=== PATIENT | male | born 1960 | race Caucasian/White ===

== ENCOUNTER 2016-10-17 17:31 | Emergency (ER) | payer MEDICAID ==
[~2016-10-17] VITALS: Ht 182.9 cm; Wt 104.0 kg
[~2016-10-17 17:31] MED LIST: AUGMENTIN875TAB PO; COLCHICINE0.6 M2 PO; FLONASE NASAL50 MCG; INDOCIN50 MG/CAP PO; ULTRAM50 M1 PO
[2016-10-17] MEDS ORDERED: MUPIROCIN2 % EX (18:29)
[2016-10-17] MEDS ORDERED: DOXYCYC MONO100 M1 PO (18:29)
[2016-10-17 18:36] VITALS: BP 142/94
== END 2016-10-17 18:39 | disposition home or self-care (01) | DRG 607 ==
LOC: ED 17:31
DX: L73.9 Follicular disorder, unspecified (principal)

== ENCOUNTER 2017-11-25 10:20 | Observation (INO) | payer OTHER ==
[~2017-11-25] VITALS: Ht 182.9 cm; Wt 102.0 kg
[~2017-11-25 10:20] MED LIST changes: +DOXYCYC MONO100 M1 PO; +MUPIROCIN2 % EX
[2017-11-25 11:08] LABS: HEMATOCRIT 36.8 % (39.0-50.0); HEMOGLOBIN 12.6 g/dl (14.0-18.0); IMMATURE GRANULOCYTES 0.2 % (0.0-1.0); MEAN CELL VOLUME 91.1 fL CALC (80.0-100.0); MEAN CORPUSCULAR HGB 31.2 pG CALC (26.0-32.0); MEAN CORPUSCULAR HGB CONC 34.2 g/L CALC (32.0-36.0); NEUT# 7.16 thou/uL (1.82-7.42); RED BLOOD COUNT 4.04 mill/uL (4.70-6.10); RED CELL DISTRI WIDTH 13.3 % (11.5-15.5)
[2017-11-25] MEDS ORDERED: LISINOPRIL10 MG PO (11:18)
[2017-11-25] MEDS ORDERED: METFORMIN500 MG PO (11:19)
[2017-11-25] MEDS ORDERED: ATORVASTATIN CA40 MG PO (11:20)
[2017-11-25 11:25] LABS: ALBUMIN 4.7 g/dL (3.2-5.0); BILIRUBIN, TOTAL 0.9 mg/dL (0.0-1.4); BUN 16 mg/dL (9-20); BUN/CREATININE RATIO 16 (12-20 (CALC)); CARBON DIOXIDE 20 mmol/l (22-30); CHLORIDE 97 mmol/l (95-108); CPK 137 u/l (52-200); GFR > 60 ML/MIN (>=60 (CALC)); GFR FOR AFR.AMER. > 60 ML/MIN (>=60 (CALC)); POTASSIUM 4.3 mmol/l (3.5-5.1); SGOT/AST 21 u/l (17-59); SGPT/ALT 46 u/l (21-72); TOTAL PROTEIN 8.7 g/dL (6.3-8.2)
[2017-11-25 11:36] LABS: ALKALINE PHOSPHATASE 109 u/l (38-126); ANION GAP 20 (6-22 (CALC)); SODIUM 133 mmol/l (137-146)
[2017-11-25 13:23] LABS: URINE BILIRUBIN - DIPSTICK NEGATIVE (NEGATIVE); URINE BLOOD DIPSTICK NEGATIVE (NEGATIVE); URINE COLOR YELLOW; URINE GLUCOSE - DIPSTICK >=1000 mg/dL (NEGATIVE); URINE KETONE NEGATIVE (NEGATIVE); URINE LEUK ESTERASE NEGATIVE (NEGATIVE); URINE NITRITE - DIPSTICK NEGATIVE (Negative); URINE PH 5.5 (4.5-8.0); URINE PROTEIN - DIPSTICK NEGATIVE (NEG-TRACE); URINE SPECIFIC GRAVITY 1.015; URINE UROBILINOGEN - DIPSTICK 0.2 E.U./dL (0.2)
[2017-11-25 13:30] LABS: URINE CLARITY CLEAR
[2017-11-25 13:40] VITALS: BP 98/66
[2017-11-25 14:08] LABS: INFLUENZA A NONE DETECTED (NONE DETECT); INFLUENZA B NONE DETECTED (NONE DETECT)
[2017-11-25 15:24] VITALS: BP 111/63
[2017-11-25 19:00] VITALS: BP 124/64
[2017-11-25 22:30] LABS: C. DIFFICILE TOXIN A&B NEGATIVE (NEGATIVE)
[2017-11-26 00:31] VITALS: BP 128/79
[2017-11-26 04:00] VITALS: BP 133/82
[2017-11-26 06:10] LABS: HEMATOCRIT 32.2 % (39.0-50.0); HEMOGLOBIN 10.9 g/dl (14.0-18.0); MEAN CORPUSCULAR HGB 31.1 pG CALC (26.0-32.0); MEAN CORPUSCULAR HGB CONC 33.9 g/L CALC (32.0-36.0); RED BLOOD COUNT 3.5 mill/uL (4.70-6.10); RED CELL DISTRI WIDTH 13.5 % (11.5-15.5)
[2017-11-26 06:30] LABS: ANION GAP 13 (6-22 (CALC)); BUN 11 mg/dL (9-20); BUN/CREATININE RATIO 12 (12-20 (CALC)); CARBON DIOXIDE 23 mmol/l (22-30); CHLORIDE 100 mmol/l (95-108); CHOLESTEROL HDL RATIO 5.1 (<4.4 (CALC)); CREATININE 0.9 mg/dL (0.7-1.3); GFR > 60 ML/MIN (>=60 (CALC)); GFR FOR AFR.AMER. > 60 ML/MIN (>=60 (CALC)); HDL CHOLESTEROL 41 mg/dL (>=40); MAGNESIUM 1.2 mg/dL (1.6-2.3); POTASSIUM 4.2 mmol/l (3.5-5.1); SODIUM 131 mmol/l (137-146); TOTAL CHOLESTEROL 210 mg/dl (0-199)
[2017-11-26 06:37] LABS: VLDL CHOLESTROL 135 mg/dl (8-62 (CALC))
[2017-11-26 06:46] LABS: TOTAL TRIGLYCERIDES 676 mg/dl (30-149)
[2017-11-26 07:54] VITALS: BP 122/76
[2017-11-26 12:30] VITALS: BP 118/72
[2017-11-26 16:17] VITALS: BP 118/84
[2017-11-26 19:05] VITALS: BP 132/87
[2017-11-27 00:08] VITALS: BP 116/77
[2017-11-27 04:00] VITALS: BP 118/79
[2017-11-27 05:26] LABS: HEMATOCRIT 32.7 % (39.0-50.0); HEMOGLOBIN 10.7 g/dl (14.0-18.0); IMMATURE GRANULOCYTES 0.3 % (0.0-1.0); MEAN CELL VOLUME 93.4 fL CALC (80.0-100.0); MEAN CORPUSCULAR HGB 30.6 pG CALC (26.0-32.0); MEAN CORPUSCULAR HGB CONC 32.7 g/L CALC (32.0-36.0); NEUT# 2.14 thou/uL (1.82-7.42); RED BLOOD COUNT 3.5 mill/uL (4.70-6.10); RED CELL DISTRI WIDTH 13.6 % (11.5-15.5)
[2017-11-27 05:43] LABS: ANION GAP 13 (6-22 (CALC)); BUN 11 mg/dL (9-20); BUN/CREATININE RATIO 13 (12-20 (CALC)); CARBON DIOXIDE 24 mmol/l (22-30); CHLORIDE 102 mmol/l (95-108); CREATININE 0.8 mg/dL (0.7-1.3); GFR > 60 ML/MIN (>=60 (CALC)); GFR FOR AFR.AMER. > 60 ML/MIN (>=60 (CALC)); POTASSIUM 4.5 mmol/l (3.5-5.1); SODIUM 135 mmol/l (137-146)
[2017-11-27 05:45] LABS: MAGNESIUM 1.6 mg/dL (1.6-2.3)
[2017-11-27 07:49] VITALS: BP 131/71
[2017-11-27] MEDS ORDERED: METRONIDAZOL500 MG PO (09:08)
[2017-11-27] MEDS ORDERED: Levaquin PO (09:08)
[2017-11-27] MEDS ORDERED: GLIMEPIRIDE2 MG PO (09:11)
[2017-11-27 11:10] VITALS: BP 141/84
== END 2017-11-27 13:15 | disposition home or self-care (01) | DRG 313 ==
LOC: ED 10:20 → ED-I 12:40 → ED 12:54 → MS2 12:55
PROVIDERS: Family Medicine; Nurse Practitioner Family; ADMIT Internal Medicine; ATTEND Internal Medicine
DX: R07.9 Chest pain, unspecified (principal); E11.65 Type 2 diabetes mellitus with hyperglycemia; R10.12 Left upper quadrant pain; E83.42 Hypomagnesemia; E78.5 Hyperlipidemia, unspecified; I10 Essential (primary) hypertension; R19.7 Diarrhea, unspecified; R10.32 Left lower quadrant pain; Z79.84 Long term (current) use of oral hypoglycemic drugs
CPT/HCPCS: G0378; J3475

== ENCOUNTER 2020-12-25 07:50 | Emergency (ER) | payer BC ==
[~2020-12-25] VITALS: Ht 182.9 cm; Wt 100.0 kg
[~2020-12-25 07:50] MED LIST changes: +ATORVASTATIN CA40 MG PO; +GLIMEPIRIDE2 MG PO; +GLIPIZIDE5 MG PO; +LISINOPRIL10 MG PO; +Levaquin PO; +METFORMIN500 MG PO; +METRONIDAZOL500 MG PO; +MUSCLE RELAXER
[2020-12-25] MEDS ORDERED: METFORMIN HCL1000 MG PO (08:22)
[2020-12-25] MEDS ORDERED: LORTAB 1010 MG PO (08:23)
[2020-12-25 08:40] LABS: HEMATOCRIT 37.1 % (39.0-50.0); HEMOGLOBIN 11.8 g/dl (14.0-18.0); IMMATURE GRANULOCYTES 0.2 % (0.0-5.0); MEAN CORPUSCULAR HGB 29.6 pG CALC (26.0-32.0); MEAN CORPUSCULAR HGB CONC 31.8 g/dL CAL (32.0-36.0); NEUT# 2.16 thou/uL (1.82-7.42); RED BLOOD COUNT 3.99 mill/uL (4.70-6.10); RED CELL DISTRI WIDTH 14.7 % (11.5-15.5)
[2020-12-25 08:59] LABS: ALBUMIN 3.9 g/dL (3.2-5.0); ALKALINE PHOSPHATASE 90 u/l (38-126); ANION GAP 14 (6-22 (CALC)); BUN 34 mg/dL (9-20); CARBON DIOXIDE 24 mmol/l (22-30); CHLORIDE 106 mmol/l (95-108); LIPASE 168 u/l (23-300); POTASSIUM 4.8 mmol/l (3.5-5.1); SODIUM 139 mmol/l (137-146); TOTAL PROTEIN 7.2 g/dL (6.3-8.2)
--- NOTE | 2020-12-25 09:05 | NUR ---
PT C SPOUSE IN ROOM. NAD. VSS. PT SPEAKING IN FULL SENTENCES C C/O THROAT IS TIGHT. CLOUD SOFTWARE ENGINEER TO MONITOR.
[2020-12-25 09:07] LABS: BILIRUBIN, TOTAL 0.1 mg/dL (0.0-1.4); BUN/CREATININE RATIO 18 (12-20 (CALC)); CREATININE 1.9 mg/dL (0.7-1.3); GFR 37 ML/MIN (>=60 (CALC)); GFR FOR AFR.AMER. 44 ML/MIN (>=60 (CALC)); SGOT/AST 48 u/l (17-59)
[2020-12-25] MEDS ORDERED: ZPAK PO (10:07)
[2020-12-25] MEDS ORDERED: ALBUTEROL SUL0.083 % IN (10:07)
[2020-12-25] MEDS ORDERED: TESSALON PERLE100 MG PO (10:08)
[2020-12-25 10:41] VITALS: BP 111/61
== END 2020-12-25 10:58 | disposition home or self-care (01) | DRG 203 ==
LOC: ED 07:50
DX: J40 Bronchitis, not specified as acute or chronic (principal); E86.0 Dehydration; E11.9 Type 2 diabetes mellitus without complications; Z87.891 Personal history of nicotine dependence; Z57.2 Occupational exposure to dust; Z20.822 Contact with and (suspected) exposure to COVID-19

== ENCOUNTER 2022-02-20 17:08 | Inpatient (IN) | payer BC ==
[2022-02-20] VITALS (67 sets, daily range): BP systolic 69–141; BP diastolic 37–93
[~2022-02-20] VITALS: Ht 182.9 cm; Wt 95.7 kg
[~2022-02-20 17:08] MED LIST changes: +ALBUTEROL SUL0.083 % IN; +CYCLOBENZAPRINE10 MG PO; -LISINOPRIL10 MG PO; +LISINOPRIL20 M1 PO; +LORTAB 1010 MG PO; +METFORMIN HCL1000 MG PO; -MUSCLE RELAXER; +TESSALON PERLE100 MG PO; +ZPAK PO
--- NOTE | 2022-02-20 17:26 | NUR ---
BG 57, ORANGE JUICE GIVEN.
[2022-02-20] MEDS ORDERED: ALLOPURINOL100 MG PO (17:45)
[2022-02-20] MEDS ORDERED: JANUVIA50 MG PO (17:45)
--- NOTE | 2022-02-20 17:45 | NUR ---
REPORTED LOW BG 57 AND LOW BP TO DR. STEPHENS.
--- NOTE | 2022-02-20 17:45 | NUR ---
DR. STEPHENS ORDERED DEXTROSE 250 FOR LOW BLOOD GLUCOSE.
[2022-02-20 17:51] LABS: HEMOGLOBIN 10.2 g/dl (14.0-18.0); IMMATURE GRANULOCYTES 0.1 % (0.0-5.0); MEAN CELL VOLUME 92.8 fL CALC (80.0-100.0); MEAN CORPUSCULAR HGB CONC 34.5 g/dL CAL (32.0-36.0); NEUT# 4.13 thou/uL (1.82-7.42); RED BLOOD COUNT 3.19 mill/uL (4.70-6.10); RED CELL DISTRI WIDTH 15.5 % (11.5-15.5)
[2022-02-20 17:52] LABS: HEMATOCRIT 29.6 % (39.0-50.0)
[2022-02-20 18:09] LABS: ALBUMIN 4.4 g/dL (3.2-5.0); TOTAL PROTEIN 7.6 g/dL (6.3-8.2)
[2022-02-20 18:11] LABS: BILIRUBIN, TOTAL 0.6 mg/dL (0.0-1.4); CREATININE 3.4 mg/dL (0.7-1.3); MAGNESIUM 2.1 mg/dL (1.6-2.3); POTASSIUM 3.4 mmol/l (3.5-5.1)
--- NOTE | 2022-02-20 18:17 | NUR ---
NOTIFIFED DR. STEPHENS OF LOW BP.
--- NOTE | 2022-02-20 18:48 | NUR ---
REASSESSED. VITALS STABLE. CALL LIGHT IN REACH. FAMILY BEDSIDE.
--- NOTE | 2022-02-20 19:00 | NUR ---
Reassessment of patient completed. No distress noted. REPORT GIVEN FROM SARATH. PATIENT HAS LOW BP MD AWARE ADDITIONAL FLUIDS ORDERED. PATIENT IS ALERT AND ORIENTED.
--- NOTE | 2022-02-20 19:08 | NUR ---
REPORT GIVEN TO KIM ALVAREZ
--- NOTE | 2022-02-20 22:13 | NUR ---
61 yr old VERY OLD appearing white male admitted icu5 per stretcher from er. stood beside stretcher then transferred self to bed. bed weight obtained. pt a/o x3. 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 said "i've drank 4 liters of water today & haven't peed. i went through 3 t-shirts sweating." uncrater shows sinus rhythm. ivf began as ordered. history obtained per pt & er record. oriented to room. fall precautions initiated.
--- NOTE | 2022-02-20 22:23 | NUR ---
Admission Note Report Given to: RETAIL GREETING CARD MERCHANDISER Transported by: Wheelchair X Stretcher Transported with: X Nurse Transporter X Patent IV O2 X Auto Radio Mechanic Location: ICU MS2 PHONE AND BEDSIDE REPORT GIVEN TO ICU NURSE. PATIENT ON 8MCG LEVOPHED GIVEN. PATIENT ALERT AND ORIENTED WITH NO ACUTE DISTRESS NOTED.
--- NOTE | 2022-02-20 22:50 | NUR ---
lab here. blood drawn.
--- NOTE | 2022-02-20 23:00 | NUR ---
pt drank 1 pitcher of water since admission.
[2022-02-21] VITALS (35 sets, daily range): BP systolic 105–168; BP diastolic 52–104
--- NOTE | 2022-02-21 00:15 | NUR ---
voided per urinal. urine spec sent to lab.
[2022-02-21 00:33] LABS: URINE BILIRUBIN - DIPSTICK NEGATIVE (NEGATIVE); URINE BLOOD DIPSTICK TRACE-INTACT (NEGATIVE); URINE COLOR YELLOW; URINE GLUCOSE - DIPSTICK NEGATIVE (NEGATIVE); URINE KETONE NEGATIVE (NEGATIVE); URINE LEUK ESTERASE NEGATIVE (NEGATIVE); URINE PH 5.5 (4.5-8.0); URINE PROTEIN - DIPSTICK NEGATIVE (NEG-TRACE); URINE UROBILINOGEN - DIPSTICK 0.2 E.U./dL (0.2)
[2022-02-21 00:34] LABS: URINE NITRITE - DIPSTICK NEGATIVE (Negative)
--- NOTE | 2022-02-21 02:00 | NUR ---
eyes closed. no distress. mud mixer helper shows sinus rhythm.
--- NOTE | 2022-02-21 03:50 | NUR ---
blood drawn & sent to lab.
[2022-02-21 04:07] LABS: HEMATOCRIT 26.4 % (39.0-50.0); MEAN CELL VOLUME 93.6 fL CALC (80.0-100.0); MEAN CORPUSCULAR HGB 31.9 pG CALC (26.0-32.0); MEAN CORPUSCULAR HGB CONC 34.1 g/dL CAL (32.0-36.0); RED BLOOD COUNT 2.82 mill/uL (4.70-6.10); RED CELL DISTRI WIDTH 15.4 % (11.5-15.5)
[2022-02-21 05:52] LABS: MAGNESIUM 1.7 mg/dL (1.6-2.3); POTASSIUM 3.7 mmol/l (3.5-5.1)
[2022-02-21 06:01] LABS: ALBUMIN 3.2 g/dL (3.2-5.0); BILIRUBIN, TOTAL 0.3 mg/dL (0.0-1.4); CREATININE 2.2 mg/dL (0.7-1.3); TOTAL PROTEIN 5.6 g/dL (6.3-8.2)
--- NOTE | 2022-02-21 06:07 | NUR ---
eyes closed. no distress. quality assurance monitor shows sinus rhythm.
[2022-02-21] MEDS ORDERED: RELAFEN500 MG PO (10:53)
[2022-02-21] MEDS ORDERED: SINGULAIR10 MG PO (10:53)
[2022-02-21] MEDS ORDERED: SB ALLERGY10 MG PO (10:54)
[2022-02-21] MEDS ORDERED: GLYBURIDE5 M1 PO (10:56)
--- NOTE | 2022-02-21 11:30 | NUR ---
PATIENT TO TRANSFER TO M/S ROOM 277.
--- NOTE | 2022-02-21 13:27 | NUR ---
rOOM CHANGE TO 274, ATTEMPTED TO GIVE REPORT NURSE UNABLE TO TAKE REPORT AT THISD TIME.
--- NOTE | 2022-02-21 14:00 | NUR ---
PT ARRIVED ON UNIT @ 1400 TRANSPORTED VIA W/C BY STAFF AND SETTLED IN ROOM. REPRODUCTION ARTIST CALLED REPORT, PT ALERT AND ORIENTED, TRIPLE LUMEN IJ CATHETERIN PLACE TO RIGHT NECK WITH 0.9NS INFUSING @ 100 ML/HR, TELE MOITOR IN PLACE, NO C/O DISCOMFORT AT THIS TIME. ORIENED TO ROOM AND CALL SHEPPARD, ALL NEEDS ADDRESSED, WILL CONTINUE TO [place].
--- NOTE | 2022-02-21 16:37 | NUR ---
nurse notified about glucose.
[2022-02-22 04:07] VITALS: BP 139/98
[2022-02-22 06:44] VITALS: BP 158/76
[2022-02-22 07:16] LABS: HEMATOCRIT 29.3 % (39.0-50.0); MEAN CELL VOLUME 93.9 fL CALC (80.0-100.0); MEAN CORPUSCULAR HGB 32.1 pG CALC (26.0-32.0); MEAN CORPUSCULAR HGB CONC 34.1 g/dL CAL (32.0-36.0); RED BLOOD COUNT 3.12 mill/uL (4.70-6.10); RED CELL DISTRI WIDTH 15.5 % (11.5-15.5)
--- NOTE | 2022-02-22 07:28 | NUR ---
PT RESTINGIN HIGH FOWLERS POSITION, A/OX3 ASSESSMENT AND VS COMPLETED. HEART RHYTHM ON TELE BOWEL SOUNDS ACTIVE. RESPIRATIONS UNLABORED. IV SITE NOTED TO LEFT FOREARM WRIST AREA PT REQUEST REMOVAL DUE TO HAVING A ONE IN NECK AREA. PT DENIES ADDITIONAL NEEDS ALL SAFETY PRECAUTIONS IN PLACE.
[2022-02-22 08:08] LABS: ANION GAP 10 (6-22 (CALC)); BUN 18 mg/dL (9-20); BUN/CREATININE RATIO 15 (12-20 (CALC)); CARBON DIOXIDE 22 mmol/l (22-30); CHLORIDE 109 mmol/l (95-108); MAGNESIUM 1.4 mg/dL (1.6-2.3); SODIUM 137 mmol/l (137-146)
[2022-02-22 08:14] LABS: CREATININE 1.2 mg/dL (0.7-1.3); GFR FOR AFR.AMER. > 60 ML/MIN (>=60 (CALC)); GFR OTHER RACES > 60 ML/MIN (>=60 (CALC))
[2022-02-22 10:12] VITALS: BP 144/75
[2022-02-22 10:58] VITALS: BP 144/75
--- NOTE | 2022-02-22 11:49 | NUR ---
PT TO BE DC. SOON
--- NOTE | 2022-02-22 15:46 | NUR ---
Discharge instructions given. Patient verbalizes understanding of same. Discharged in stable condition via Wheelchair to Home with staff. All belongings sent with pt. LINE REMOVED FROM [employer]LE ETL DEVELOPER REMOVED
== END 2022-02-22 15:46 | disposition home or self-care (01) | DRG 683 ==
LOC: ED 17:08 → ED-I 19:05 → ED 20:49 → ICU 20:50 → MS2 20:50
PROVIDERS: Family Medicine; ADMIT Internal Medicine; ATTEND Internal Medicine
PROC: 05H533Z Insertion of Infusion Device into Right Subclavian Vein, Percutaneous Approach (ICD-10-PCS; principal; 2022-02-20)
PROC: 3E043XZ Introduction of Vasopressor into Central Vein, Percutaneous Approach (ICD-10-PCS; 2022-02-20)
DX: N17.9 Acute kidney failure, unspecified (principal); R57.9 Shock, unspecified; E86.0 Dehydration; I12.9 Hypertensive chronic kidney disease with stage 1 through stage 4 chronic kidney disease, or unspecified chronic kidney disease; E11.22 Type 2 diabetes mellitus with diabetic chronic kidney disease; N18.9 Chronic kidney disease, unspecified; E11.649 Type 2 diabetes mellitus with hypoglycemia without coma; E78.5 Hyperlipidemia, unspecified; Z79.84 Long term (current) use of oral hypoglycemic drugs; Z87.891 Personal history of nicotine dependence; Z20.822 Contact with and (suspected) exposure to COVID-19
CPT/HCPCS: J3475